=== PATIENT | male | born 2000 | race Caucasian/White ===

== ENCOUNTER 2024-04-12 10:30 | Outpatient (CLI) | payer OTHER, SELFPAY | END 2024-04-12 10:31 | disposition home or self-care (01) | LOC: FRMREF 10:31 | PROVIDERS: PCP Nurse Practitioner Family; Visit Provider Nurse Practitioner Family | DX: Z13.6 Encounter for screening for cardiovascular disorders (principal) | CPT/HCPCS: 80061 ==